=== PATIENT | male | born 1960 | race Caucasian/White ===

== ENCOUNTER 2018-06-07 17:15 | Emergency (ER) | payer BC ==
[~2018-06-07] VITALS: Ht 175.3 cm; Wt 64.8 kg
[~2018-06-07 17:15] MED LIST: MELOXICAM7.5 MG PO; SERTRALINE HCL50 MG PO; ZOLPIDEM TARTRAT5 MG PO
[2018-06-07] MEDS ORDERED: TYLENOL WITH C1 EACH PO (18:51)
[2018-06-07 19:52] VITALS: BP 119/75
== END 2018-06-07 19:53 | disposition home or self-care (01) ==
LOC: EME 17:15
DX: R07.89 Other chest pain (principal); R21 Rash and other nonspecific skin eruption; M54.9 Dorsalgia, unspecified; F17.200 Nicotine dependence, unspecified, uncomplicated
CPT/HCPCS: 71046; 99281; 99283

== ENCOUNTER 2018-06-29 15:54 | Emergency (ER) | payer BC ==
[~2018-06-29] VITALS: Ht 175.3 cm; Wt 64.3 kg
[~2018-06-29 15:54] MED LIST changes: +TYLENOL WITH C1 EACH PO
[2018-06-29 18:00] VITALS: BP 123/83
== END 2018-06-29 18:02 | disposition home or self-care (01) ==
LOC: EME 15:54 → EXP 15:54
DX: S81.811A Laceration without foreign body, right lower leg, initial encounter (principal); W22.8XXA Striking against or struck by other objects, initial encounter; Y99.0 Civilian activity done for income or pay; Z23 Encounter for immunization; F17.200 Nicotine dependence, unspecified, uncomplicated
CPT/HCPCS: 99281; 99284